=== PATIENT | female | born 1955 | race Caucasian/White ===

== ENCOUNTER 2019-07-08 13:15 | Outpatient (RCR) | payer OTHER, SELFPAY ==
--- NOTE | 2019-05-26 13:43 | PTOPEVAL ---
PHYSICAL THERAPY EVALUATION Thank you for referring this patient to [facility]. I recommend physical therapy 2x/week for 4-8weeks to address below findings. Please review, sign, date and return this plan of care ROBIN. I agree with and certify that the following plan of care is medically necessary. Referring Physician Date Evaluation Outpatient Past Medical History Neurological History Hx Migraine Yes Musculoskeletal History Hx Back Injury Yes Hx Back Pain Yes Hx Degenerative Disk Disease Yes Hx Scoliosis Yes Hx Spinal Surgery Yes: kyphoplasty Hx Other Musculoskeletal Disorders Yes: bilateral rotator cuff tears; right hip pain from fall 2016 Endocrine History Hx Diabetes Yes Pain History Has Past Pain Affected Your Daily Life Yes Evaluation Information Problem Diagnosis spinal radiculopathy; L2 compression fracture, OA Onset 02/2017 Cause fall Additional Evaluation Detail kyphoplasty L2 07/2017 NDI: = 52% MARIANNE: = 60% Subjective Information Shazia is here today with c/o Query Text:As Reported By Patient/ severe back pain as a result Family of a fall in 2016. She did receive a kyphoplasty and previous therapeutic intervention. The kyphoplasty brought her down from a 10/10 to a 7/10, but she states she did not receive a significant amount of strengthening during last therapy and she is now back to a 10/10 pain. She states she can only stand or walk for 10minutes or less. Did take a fall back onto the toilet when trying to stand from the toilet - states that this fall worsened symptoms right now. Also has neck pain with some radicular symptoms Diagnostic Tests X-Rays For This Problem Yes MRI For This Problem Yes Previous Treatments Previous Treatments For This Problem physical therapy: states it included a lot of massage and no core strengthe Prior Level of Function Activity Level (Last 3 Months) Hand Dominance Right Activity of Daily Living Ability
--- NOTE | 2019-07-03 13:59 | PTOPEVAL ---
PHYSICAL THERAPY PLAN OF CARE UPDATE AND PROGRESS REPORT Thank you for referring this patient to [facility]. Shazia will benefit from further PT care and I recommend 2x/week for 4 weeks. Please review, sign, date and return this plan of care ROBIN. I agree with and certify that the following plan of care is medically necessary. Referring Physician Date Re-evaluation Evaluation Information Diagnosis spinal radiculopathy; L2 compression fracture, OA Onset 02/2017 Cause fall Additional Evaluation Detail kyphoplasty L2 07/2017 NDI: = 52% MARIANNE: = 62% Subjective Information Shazia is here today after Query Text:As Reported By Patient/ participating in physical Family therapy for 8 visits. She and her agree that they see benefit from participation in physical therapy. She performs exericses at home, both prescirbed and self determined. Shazia has been planning to go to the [facility] to use the pool for aquatic strengthening, but as not yet made it - plans to start in July. Pain Scale Used Numeric (1 - 10) Self Report Pain Assessment Bilateral Spine, Lumbar Reported Pain Level 6 Pain Description Aching,Burning,Numbness, Shooting Pain Frequency Chronic,Continuous Pain Aggravating Factors Bending,Exercise/Activity, Lifting,Walking,Weight Bearing /Standing Interventions Used By Clinicians Exercise Other Alleviating Interventions CBD cream, tramadol Pain Score Pain Score 6: Self Report Additional Pain Score Comments feels as though she can walk for up to 15minutes Lower Extremity Muscle Strength Testing Reason Not Measured WFL/Left,WFL/Right Gross Lower Extremity Strength generally 4+/5 throughout LE strength but with pain in low back; hip abduction: 3/5 with pain in right hip from previous injury Balance Assessment Sitting to Standing Independent w/Hands Unsupported Stance Ability Safely- 2 minutes Sitting Unsupported, Feet on Floor Safely- 2 minutes Standing to Sitting Assist, Control w/Hands Transfer Ability Safely, Hand Use Unsupported Stance- Eyes Closed
--- NOTE | 2019-07-21 09:02 | PCPTNOTE ---
PHYSICAL THERAPY DISCHARGE NOTE Patient:Shazia Hollins Date of :1955 Shazia is going to have surgery and is going to wait to do therapy at this time. She will be discharged from therapy at this time. The goals have been partially achieved. Thank you for referring this patient to [facility]. Please review, sign, date and return this discharge summary ROBIN. I have been updated about the patient's current status and I agree with discharge from the above service at this time. Referring Physician Date
== END 2019-07-21 09:50 | disposition home or self-care (01) ==
LOC: ANHPT 13:15
DX: M54.12 Radiculopathy, cervical region (principal); M54.14 Radiculopathy, thoracic region; M54.16 Radiculopathy, lumbar region; M19.011 Primary osteoarthritis, right shoulder; M19.012 Primary osteoarthritis, left shoulder; M25.512 Pain in left shoulder; M16.10 Unilateral primary osteoarthritis, unspecified hip
CPT/HCPCS: 97110; 97140; 97162